=== PATIENT | male | born 1965 | race Caucasian/White ===

== ENCOUNTER 2023-08-18 12:01 | Outpatient (CLI) | payer MEDICARE, SELFPAY | END 2023-08-18 12:02 | disposition home or self-care (01) | LOC: LKVREF 12:01 | PROVIDERS: PCP Physician Assistant Medical; Visit Provider Physician Assistant Medical | DX: E11.9 Type 2 diabetes mellitus without complications (principal); I10 Essential (primary) hypertension | CPT/HCPCS: 82043; 82570 ==